=== PATIENT | male | born 1950 | race Caucasian/White ===

== ENCOUNTER 2016-11-01 07:43 | Observation (INO) | payer OTHER, MEDICARE ==
[2016-11-01] MEDS ORDERED: DIAZEPAM 5 MG TAB PO ONE (07:46)
[2016-11-01] MEDS ORDERED: diphenhydrAMINE 25 MG CAP PO ONE (07:46)
[2016-11-01] MEDS ORDERED: NS 1,000 ML IV ONE (07:46)
[2016-11-01] MEDS ORDERED: FAMOTIDINE 20 MG TAB PO ONE (07:46)
[2016-11-01] MEDS ORDERED: ASPIRIN EC 325 MG TAB PO ONE (07:46)
[2016-11-01 08:16] LABS: % IMMATURE GRANULYOCYTES 0.3 % (0.0-1.1); ABSOLUTE IMMATURE GRANULOCYTES 0.02 10^3/uL (0.00-0.10); ADD DIFF? NO; ADD MORPH? NO; ADD SCAN? NO; ATYPICAL LYMPHOCYTE FLAG 0 (0-99); FRAGMENT RBC FLAG 0 (0-99); HEMATOCRIT 41.6 % (40.0-51.0); HEMOGLOBIN 14.2 g/dL (13.7-17.5); LEFT SHIFT FLG 0 (0-99); LIPEMIA HEMOLYSIS FLAG 90 (0-99); MEAN CELL HEMOGLOBIN 31.8 pg (27.9-34.1); MEAN CELL HEMOGLOBIN CONCENTR. 34.1 g/dL (32.4-36.7); MEAN CELL VOLUME 93.3 fL (81.5-99.8); MEAN PLATELET VOLUME 8.7 fL (8.7-11.7); PLATELET CLUMPS FLAG 0 (0-99); PLATELET COUNT 176 10^3/uL (150-400); RED BLOOD CELL COUNT 4.46 10^6/uL (4.40-6.38)
--- NOTE | 2016-11-01 08:19 | CPEKG ---
Heart Rate: 64 RR Interval: 938 P-R Interval: 180 QRSD Interval: 88 QT Interval: 420 QTC Interval: 434 P [place]: -1 QRS [place]: 46 T Wave [place]: 42 EKG Severity - BORDERLINE ECG - EKG Impression: SINUS RHYTHM EKG Impression: BORDERLINE T ABNORMALITIES, LATERAL LEADS Electronically Signed By: Channing Serrnao 01-Nov-2016 09:05:17
[2016-11-01 08:27] LABS: INR 1.04 (0.83-1.16); PROTIME(PATIENT) 13.5 SEC (12.0-15.0)
[2016-11-01 08:31] LABS: ANION GAP 12 mEq/L (8-16); CARBON DIOXIDE 25 mEq/l (22-31); CHLORIDE 105 mEq/L (97-110); CHOLESTEROL 130 mg/dL (140-220); CHOLESTEROL/HDL RATIO 3.82 RATIO (1.00-4.97); GLOMERULAR FILTRATION RATE > 60; GLUCOSE 92 mg/dL (70-100); HIGH DENSITY LIPOPROTEIN 34 mg/dL (40-65); LDL/HDL RATIO 2.26 RATIO (1.00-3.64); LOW DENSITY LIPOPROTEIN 77 mg/dL (80-100); MAGNESIUM 1.8 mg/dL (1.6-2.3); NON-HIGH DENSITY LIPOPROTEIN 96 mg/dL (90-129); POTASSIUM 4.3 mEq/L (3.5-5.2); SODIUM 142 mEq/L (134-144); TRIGLYCERIDE 97 mg/dL (40-150); VERY LOW DENSITY LIPOPROTEINS 19 mg/dL (8-25)
[2016-11-01] MEDS ORDERED: LIDOCAINE 1% 300 MG/30 ML SDV ONE (09:11)
[2016-11-01] MEDS ORDERED: fentaNYL 100 MCG/2 ML INJ ONE ×2 (09:12→10:18)
[2016-11-01] MEDS ORDERED: IOPAMIDOL (ISOVUE-370) 150 ML BTL IV ONE ×2 (09:12→11:01)
[2016-11-01] MEDS ORDERED: MIDAZOLAM 2 MG/2 ML VIAL ONE ×2 (09:12→10:18)
[2016-11-01] MEDS ORDERED: BIVALIRUDIN 250 MG/5 ML VIAL IV ONE ×2 (10:19→10:25)
--- NOTE | 2016-11-01 10:48 | GHP ---
[f rep st] HISTORY AND PHYSICAL DATE OF ADMISSION: 11/01/2016 PROCEDURE PERFORMED: Diagnostic left heart catheterization. INDICATION FOR PROCEDURE: Progressive 1 month history of shortness of breath, dyspnea on exertion, exertional intolerance, fatigue, exertional left-sided chest pain with right arm numbness in the set ting of known coronary artery disease with previous PCI to the LAD and diagonal in 2005. HISTORY OF PRESENT ILLNESS: This patient is a pleasant 66-year-old gentleman with a known history o f coronary artery disease, hyperlipidemia, hypertension and a history of peripheral vascular disease , who was last seen in our office on November 17, 2015 and was feeling well. He lives half the time [facility]. He has recently come back to [place]. He presented with complaints of increasing shortne ss of breath, dyspnea, exertional intolerance and fatigue. He also describes exertional left-sided chest pain with radiation to the right arm. He states these symptoms are similar to the symptoms he had prior to his PCI to the LAD in 2005. He has been compliant with medical management. In the setting of the above complaints, he was scheduled for an exercise nuclear stress test in the office yesterday. Resting nuchal images demonstrated a marked change in inferior wall and apex cons istent with resting ischemia. In the setting of these new findings compared to previous nuclear hernán dy, coupled with his complaints and known history of coronary disease, the decision was made not to perform exercise stress testing and stress imaging, and instead alter our plan for diagnostic left h eart catheterization. He is agreeable to pursue. He has been compliant with medical therapy. Blood pressure is well controlled. Lipids are slightly suboptimally controlled with an LDL of 79. PAST MEDICAL HISTORY: 1. Coronary artery disease. 2. Hypertension. 3. Hyperlipidemia. 4. Sleep apnea. 5. 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 6. Sleep apnea. 7. History of right knee replacement. FAMILY HISTORY: Negative for premature history of coronary artery disease. MEDICATIONS ON ADMISSION: 1. Aspirin 81 mg daily. 2. Atorvastatin 80 mg daily. 3. Bystolic 5 mg daily. 4. Finasteride 1 mg daily. 5. Plavix 75 mg daily. 6. Ramipril 5 mg daily. 7. Vitamin D 1000 units daily. 8. Zyrtec 10 mg daily. ALLERGIES: None to medications. SOCIAL HISTORY: He is a former smoker. 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 PHYSICAL EXAMINATION: GENERAL: He is awake, alert, oriented, and appropriate, in no apparent distr ess. VITAL SIGNS: Stable. NECK: There is no evidence of JVP: LUNGS: Clear to auscultation bila terally. CARDIAC: S1, S2. Regular rate and rhythm. No murmurs, rubs, or gallops. EXTREMITIES: He has 2+ dorsalis pedis and posterior tibial pulses in the right leg. No evidence of cyanosis, clu bbing or edema. LAB WORK: From today demonstrates a white blood cell count of 5.1, hemoglobin of 14.2, hematocrit o f 41.6, platelets of 176. INR 1.04. Sodium 142, potassium 4.3, chloride 105, bicarb 25, BUN 21, cr eatinine 1.02, glucose 92. Magnesium 1.8. Total cholesterol 132, triglycerides 97, HDL 34, LDL 77. IMAGING: ECG in the CVC this morning demonstrates sinus rhythm. There is normal R-wave progression . There are T-wave inversions in leads V4 through V6. IMPRESSION: 1. Exertional angina. 2. Dyspnea on exertion. 3. Exertional intolerance and fatigue. 4. Shortness of breath. 5. Known coronary artery disease. 6. Abnormal resting nuclear stress test images compared to previous nuclear study. PLAN: Left heart catheterization this morning. The risks and benefits of percutaneous coronary intervention, left heart catheterization were review ed with the patient in detail. He is agreeable to pursue. /[id number]/MODL
[2016-11-01] MEDS ORDERED: HYDROCODONE/APAP 5/325 TAB PO PRN (11:31)
[2016-11-01] MEDS ORDERED: NITROGLYCERIN 0.4 MG BTL SL PRN (11:31)
[2016-11-01] MEDS ORDERED: ACETAMINOPHEN 325 MG TAB PO PRN (11:31)
[2016-11-01] MEDS ORDERED: ATROPINE SULFATE 1 MG/10 ML SYR IVP PRN (11:31)
[2016-11-01] MEDS ORDERED: ONDANSETRON 4 MG/2 ML VIAL IVP PRN (11:31)
[2016-11-01] MEDS ORDERED: TEMAZEPAM 15 MG CAP PO PRN (11:31)
[2016-11-01] MEDS ORDERED: NS 1,000 ML IV SCH (11:45)
--- NOTE | 2016-11-01 12:47 | CPIP ---
[f rep st] INVASIVE CARDIAC PROCEDURE Corrected report DATE OF PROCEDURE: 11/01/2016 PROCEDURE PERFORMED: Diagnostic left heart catheterization. INDICATION FOR PROCEDURE: Exertional chest pain, increasing shortness of breath , dyspnea on exertion, exertional intolerance, and increasing fatigue in the setting of known coronary artery disease. Also abnormal resting nuclear images consistent with resting ischemia. DESCRIPTION OF PROCEDURE: After informed consent was obtained, Mr. Garcia was brought to the cardiac catheterization lab where he was prepped and draped in a sterile fashion. Using 1% lidocaine, the right groin was anesthetized. Using the modified Seldinger technique, a 6-Macedonian catheter was placed in the right common femoral artery without complications. A JL4 catheter was used to take images of the left coronary anatomy in multiple projections. JL4 catheter was exchanged over a guidewire for a JR4 catheter. JR4 catheter was used to take images of the right coronary anatomy in multiple projections. The JR4 catheter was exchanged over a guidewire for an angled pigtail catheter. Angled pigtail catheter was used to cross the aortic valve. Left ventriculogram was performed. LVEDP was assessed and aortic valve gradient was assessed on pull- back. Angled pigtail catheter was then removed over a guidewire without complications. Right common femoral artery angiography was obtained. FINDINGS: Left main normal size and caliber. It bifurcates into a left anterior descending and left circumflex coronary artery. No evidence of coronary disease within the left main. Left anterior descending artery demonstrates patent proximal stents with no evidence of in-stent stenosis. There is a 95% to 99% stenosis of the LAD just distal to a moderate-size 1st diagonal branch. There are some mild luminal irregularities within the distal LAD. Circumflex vessel gives rise to a very proximal 1st obtuse marginal branch. There is 20% to 30% narrowing in the ostium of the large diagonal branch. The circumflex vessel itself has some mild luminal irregularities with no evidence of flow-limiting disease. Right coronary artery is a dominant vessel. There is mild to moderate luminal irregularities diffusely throughout the right coronary artery with no focal stenosis. There is evidence of right to left collateralization to the LAD. HEMODYNAMICS: LVEF demonstrates mid and apical anterior wall hypokinesis with LVEF of approximately 45% to 50%. LVEDP 12 mmHg. Aortic valve gradient none. CONCLUSION: 1. Single vessel severe coronary artery disease with 95% to 99% stenosis of the proximal LAD just distal to the previous stents, and just distal to the first diagonal branch. 2. Srpc-sv-imumhrdy luminal irregularities within the circumflex and right coronary artery without hemodynamically significant stenosis. 3. Mild reduction LVEF with LVEF approximately 50% with apical and mid anterior wall hypokinesis. PLAN: I have reviewed these images with my interventional colleague, Dr. Vega. Will plan for percutaneous coronary intervention to the LAD. /[id number]/MODL [place] worktype, 11/01/16, yina ROSE
--- NOTE | 2016-11-01 12:58 | CPIP ---
[f rep st] INVASIVE CARDIAC PROCEDURE DATE OF PROCEDURE: 11/01/2016 PROCEDURE PERFORMED: Percutaneous coronary intervention of the left anterior descending. INDICATION FOR PROCEDURE: Please refer to Dr. Payne's dictated diagnostic cardiac catheterization re port. Briefly, the patient is a 66-year-old male with a history of CAD that dates back over 20 year s. He has undergone previous angioplasty and subsequent PCI with stenting of his LAD. He presented with crescendo angina. On the basis of his clinical history, Dr. Payne performed a diagnostic cardi ac catheterization which demonstrated diffuse but noncritical CAD involving the circumflex and RCA. The left anterior descending had a previously stented segment in its mid portion. Within the dista l 3rd of the stented segment, there was a focal high-grade stenosis in excess of 90%. Immediately p roximal to this stenosis, there was the origin of a small diagonal branch which also had significant narrowing at its ostium. DETAILS OF PROCEDURE: The patient received intravenous Angiomax. A 6-Armenian CLS 3.5 guide catheter was advanced to the left main. An Intuition guidewire was directed into the distal portion of the left anterior descending. A 2nd Intuition guidewire was advanced into the distal portion of the yeison gonal branch arising immediately proximal to the target lesion in the LAD. Balloon angioplasty of t he ostium and proximal portion of the diagonal branch was performed, using a 1.5 x 12 mm Emerge ball oon. Pre-dilatation of the target stenosis in the left anterior descending was then performed using a 2.5 x 8 mm Emerge balloon. A 2.75 x 16 mm Synergy drug-coated stent was then positioned in the l eft anterior descending. The guide wire in the diagonal branch was withdrawn. The stent was deploy ed at high pressure. Postdilatation of the stent was performed using a 3.0 x 8 mm NC Emerge balloon in the proximal half of the newly-placed stent. Final angiograms demonstrated 0% residual stenosis in the left anterior descending and 30% to 40% residual stenosis in the ostium of the diagonal bran ch. This diagonal branch is now behind 2 layers of "stent nursing home." It is too small to be considered for bifurcation stenting. COMPLICATIONS: None. CONCLUSIONS: Successful percutaneous coronary intervention with placement of a single drug-coated s tent in the midportion of the left anterior descending and balloon angioplasty of the ostium of the first diagonal branch. /[id number]/MODL
--- NOTE | 2016-11-01 16:32 | CPEKG ---
Heart Rate: 64 RR Interval: 938 P-R Interval: 184 QRSD Interval: 90 QT Interval: 420 QTC Interval: 434 P [place]: 4 QRS [place]: 55 T Wave [place]: 77 EKG Severity - ABNORMAL ECG - EKG Impression: SINUS RHYTHM EKG Impression: NONSPECIFIC T ABNORMALITIES, ANT-LAT LEADS Electronically Signed By: Zenon Gruber 01-Nov-2016 16:36:16
[2016-11-01] MEDS ORDERED: diphenhydrAMINE 25 MG CAP PO SCH (21:00)
[2016-11-01] MEDS ORDERED: NON-FORMULARY NEW DRUG (Atorvastatin Calcium [Lipitor 80 Mg] 80 MG) PO SCH (21:00)
[2016-11-01] MEDS ORDERED: ATORVASTATIN CALCIUM 40 MG TAB PO SCH (21:00)
[2016-11-01] MEDS ORDERED: FINASTERIDE 5 MG TAB PO SCH (21:00)
[2016-11-01] MEDS ORDERED: CHOLECALCIFEROL VIT D3 1,000 UNITS TAB PO SCH (21:00)
[2016-11-02 05:00] LABS: % IMMATURE GRANULYOCYTES 0.3 % (0.0-1.1); ABSOLUTE IMMATURE GRANULOCYTES 0.02 10^3/uL (0.00-0.10); ADD DIFF? NO; ADD MORPH? NO; ADD SCAN? NO; ATYPICAL LYMPHOCYTE FLAG 0 (0-99); FRAGMENT RBC FLAG 0 (0-99); HEMATOCRIT 38.8 % (40.0-51.0); HEMOGLOBIN 13.1 g/dL (13.7-17.5); LEFT SHIFT FLG 0 (0-99); LIPEMIA HEMOLYSIS FLAG 90 (0-99); MEAN CELL HEMOGLOBIN 31.7 pg (27.9-34.1); MEAN CELL HEMOGLOBIN CONCENTR. 33.8 g/dL (32.4-36.7); MEAN CELL VOLUME 93.9 fL (81.5-99.8); MEAN PLATELET VOLUME 9.6 fL (8.7-11.7); PLATELET CLUMPS FLAG 0 (0-99); PLATELET COUNT 167 10^3/uL (150-400); RED BLOOD CELL COUNT 4.13 10^6/uL (4.40-6.38); RED CELL DISTRIBUTION WIDTH 13.1 % (11.5-15.2)
[2016-11-02 05:27] LABS: ALBUMIN 3.2 g/dL (3.5-5.0); ANION GAP 7 mEq/L (8-16); ASPARTATE AMINOTRANSFERASE 25 IU/L (17-59); BILIRUBIN,TOTAL 0.5 mg/dL (0.1-1.4); CALCIUM 8.7 mg/dL (8.5-10.4); CARBON DIOXIDE 25 mEq/l (22-31); CHLORIDE 107 mEq/L (97-110); CREATININE 1.2 mg/dL (0.7-1.3); GLOMERULAR FILTRATION RATE > 60; GLUCOSE 79 mg/dL (70-100); LACTATE DEHYDROGENASE 513 IU/L (313-618); MAGNESIUM 1.8 mg/dL (1.6-2.3); POTASSIUM 4.4 mEq/L (3.5-5.2); SODIUM 139 mEq/L (134-144)
[2016-11-02 08:24] VITALS: BP 135/77; PULSE 74; RESP 14; TEMP 98.1; O2SAT 99
[2016-11-02] MEDS ORDERED: CETIRIZINE 10 MG TAB PO SCH (09:00)
[2016-11-02] MEDS ORDERED: RAMIPRIL 5 MG CAP PO SCH (09:00)
[2016-11-02] MEDS ORDERED: CLOPIDOGREL BISULFATE 75 MG TAB PO SCH (09:00)
[2016-11-02] MEDS ORDERED: ASPIRIN EC 325 MG TAB PO SCH (09:00)
[2016-11-02] MEDS ORDERED: NEBIVOLOL HCL 5 MG TAB PO SCH (09:00)
--- NOTE | 2016-11-02 09:10 | CPEKG ---
Heart Rate: 69 RR Interval: 870 P-R Interval: 176 QRSD Interval: 88 QT Interval: 392 QTC Interval: 420 P [place]: -2 QRS [place]: 46 T Wave [place]: 44 EKG Severity - NORMAL ECG - EKG Impression: SINUS RHYTHM Electronically Signed By: Zenon Gruber 02-Nov-2016 22:05:17
--- NOTE | 2016-11-02 11:16 | GDS ---
[f rep st] DISCHARGE SUMMARY REASON FOR ADMISSION: Coronary artery disease. HOSPITAL COURSE: Please refer to the recent [facility] office note which serves as the history and physical for this hospital encounter. Briefly, the patient is a 66-year-old male with a history of coronary artery disease and previous PCI procedures involving the left anterior descendi ng. He presented to the [facility] Cardiology Department with escalating anginal sympto ms over the past several weeks. Based on his history, he was scheduled for a cardiac catheterizatio n. That procedure was carried out by Dr. Dennis Payne and demonstrated noncritical disease of the cir cumflex and RCA. There was a previously stented segment in the mid LAD which had a high grade re-st enosis involving the distal 3rd of the previous stent. In addition, there was significant ostial st enosis of the origin of a diagonal branch within the stented segment. I was asked to perform PCI. The diagonal branch was treated with balloon angioplasty using a 1.5 mm balloon. A 2.75 x 16 mm syn ergy stent was placed in the mid left anterior descending. The proximal half of the new stent was p ost dilated with a 3.0 mm noncompliant balloon. The patient had no complications. There were no bl eeding issues from his femoral catheterization site. This morning he is stable and ready for discha rge. RECOMMENDATIONS AND DISPOSITION ON DISCHARGE: The patient is discharged in stable condition. He sh ould resume a heart healthy diet. Red wine, 2 servings per day, can be continued and considered to be beneficial. For the next 3-5 days, he should not engage in any strenuous activity or heavy physi shima exercise. Thereafter, he has no restrictions and can continue his usual exercise habits. [place] refer to the medication section of the electronic record. The only change being made to his medic ations upon discharge is he will take Plavix daily instead of every other day. His lipid panel demo nstrated a total cholesterol of 130 with HDL 34, LDL 77, and triglycerides 97. I discussed these re sults with the patient and suggested that he might check with Dr. Payne about adding Zetia to his reg imen in order to achieve an LDL cholesterol less than 70. He has followup with Dr. Payne on November 06. DISCHARGE DIAGNOSES: 1. Coronary artery disease. 2. Hyperlipidemia. 3. Status post percutaneous coronary intervention of the left anterior descending using a single dr nunez coated stent. /[id number]/MODL
== END 2016-11-02 10:26 | disposition home or self-care (01) ==
LOC: FCATH 07:43 → F2W 11:43
PROVIDERS: ADMIT Internal Medicine Interventional Cardiology; ATTEND Internal Medicine Interventional Cardiology
PROC: 027034Z Dilation of Coronary Artery, One Artery with Drug-eluting Intraluminal Device, Percutaneous Approach (ICD-10-PCS; principal; 2016-11-01)
PROC: 4A023N7 Measurement of Cardiac Sampling and Pressure, Left Heart, Percutaneous Approach (ICD-10-PCS; 2016-11-01)
PROC: B2151ZZ Fluoroscopy of Left Heart using Low Osmolar Contrast (ICD-10-PCS; 2016-11-01)
PROC: B2111ZZ Fluoroscopy of Multiple Coronary Arteries using Low Osmolar Contrast (ICD-10-PCS; 2016-11-01)
DX: I25.119 Atherosclerotic heart disease of native coronary artery with unspecified angina pectoris (principal); E78.5 Hyperlipidemia, unspecified; I10 Essential (primary) hypertension; G47.33 Obstructive sleep apnea (adult) (pediatric); Z96.651 Presence of right artificial knee joint; Z95.5 Presence of coronary angioplasty implant and graft
CPT/HCPCS: 92921; 93005; 93458; C1725; C1769; C1874; C1887; C9600; J0583; J1644; J2250; J3010; Q9967; J0461

== ENCOUNTER → 2016-11-10 | Outpatient (CLI) | payer OTHER, MEDICARE | LOC: BMCIMAGING 08:09 | PROVIDERS: ATTEND Internal Medicine Cardiovascular Disease | DX: I65.23 Occlusion and stenosis of bilateral carotid arteries (principal); I25.10 Atherosclerotic heart disease of native coronary artery without angina pectoris; E78.5 Hyperlipidemia, unspecified; I10 Essential (primary) hypertension; Z95.5 Presence of coronary angioplasty implant and graft ==

== ENCOUNTER → 2018-07-27 | Outpatient (CLI) | payer OTHER, MEDICARE | LOC: BHFA 08:30 | PROVIDERS: ATTEND Internal Medicine Cardiovascular Disease | DX: I25.10 Atherosclerotic heart disease of native coronary artery without angina pectoris (principal) ==

== ENCOUNTER → 2018-07-31 | Outpatient (CLI) | payer OTHER, MEDICARE | LOC: FCPNEURO 20:00 | PROVIDERS: ATTEND Psychiatry & Neurology Sleep Medicine | DX: G47.33 Obstructive sleep apnea (adult) (pediatric) (principal); G47.61 Periodic limb movement disorder ==